=== PATIENT | female | born 2000 | race Two or more races ===

== ENCOUNTER 2024-01-21 02:46 | Observation (INO) | payer MEDICAID, OTHER ==
[~2024-01-21] VITALS: Ht 152.4 cm; Wt 68.0 kg
[2024-01-21] MEDS: TERBUTALINE SULFATE 1 MG/ML 1ML VIAL SC ONE ×2 (03:46→06:55)
[2024-01-21] MEDS: BETAMETHASONE ACET (30mg/5ml) 5ml Vial 6mg/ml IM ONE (03:59)
[2024-01-21 06:55] LABS: Basophils # (auto) 0 10 ^3/uL (0-0.2); Basophils % (auto) 0.3 % (0.0-2.0); Eosinophils # (auto) 0 10 ^3/uL (0-0.8); Eosinophils % (auto) 0.4 % (0.0-7.0); Hematocrit 37.1 % (36.0-46.0); Hemoglobin 12.5 g/dL (12.2-16.2); Lymphocytes % (auto) 11.5 % (10.0-50.0); Mean Corpuscular Hemoglobin 31.5 pg (28.0-32.0); Mean Corpuscular Hgb Conc. 33.7 g/dL (32.0-36.0); Mean Corpuscular Volume 93.5 fL (80.0-100.0); Monocytes # (auto) 0.3 10 ^3/uL (0-1.3); Monocytes % (auto) 3.2 % (0.0-12.0); Neutrophils # (auto) 7.5 10 ^3/uL (1.6-8.6); Neutrophils % (auto) 84.6 % (37.0-80.0); Nucleated Red Blood Cells % 0.1 %; Red Blood Cells 3.96 10^6/uL (4.0-5.20); Red Cell Distribution Width 13.3 % (11.8-14.3); White Blood Cell 8.9 10^3/uL (4.4-10.8)
[2024-01-21 07:02] LABS: Alanine Aminotransferase 14 U/L (7-40); Albumin 3.4 g/dL (3.2-4.8); Alkaline Phosphatase 189 U/L (46-116); Anion Gap 9 (5-15); Aspartate Aminotransferase 23 U/L (13-40); BUN/Creatinine Ratio 15.5 (10.0-20.0); Bilirubin, Total 0.3 mg/dL (0.2-1.0); Blood Urea Nitrogen 9 mg/dL (9-23); Calcium 8.8 mg/dL (8.5-10.1); Carbon Dioxide 20 mmol/L (20-30); Chloride 108 mmol/L (98-107); Glucose 97 mg/dL (74-106); Potassium 3.4 mmol/L (3.5-5.1); Sodium 137 mmol/L (136-145); Total Protein 5.9 g/dL (5.7-8.2)
[2024-01-21] MEDS ORDERED: NIF10C PO ×3 (07:03→07:35)
[2024-01-21] MEDS ORDERED: PREN-96 PO ×2 (07:35)
[2024-01-21] MEDS: NIFEdipine 10 MG CAP PO ONE (07:57)
[2024-01-22 06:06] LABS: RPR Non Reactive (Non Reactive)
[2024-01-22 07:06] LABS: Rubella Antibodies, IgG 1.39 index (Immune >0.99)
== END 2024-01-21 08:40 | disposition home or self-care (01) ==
LOC: LDRP 02:46
PROVIDERS: ADMIT Obstetrics & Gynecology; ATTEND Obstetrics & Gynecology
DX: O47.00 False labor before 37 completed weeks of gestation, unspecified trimester (principal); O26.893 Other specified pregnancy related conditions, third trimester; R10.30 Lower abdominal pain, unspecified; Z3A.34 34 weeks gestation of pregnancy; Z98.890 Other specified postprocedural states
CPT/HCPCS: 36415; 59025; 76805; 76817; 80053; 81002; 85025; 86592; 86703; 86762; 86850; 86900; 86901; 87081; 87340; 96372; G0378; J0702; J3105

== ENCOUNTER 2024-01-21 16:05 | Observation (INO) | payer MEDICAID ==
[~2024-01-21] VITALS: Ht 154.9 cm; Wt 68.0 kg
[~2024-01-21 16:05] MED LIST: NIF10C PO; PREN-96 PO
[2024-01-21] MEDS: BETAMETHASONE ACET (30mg/5ml) 5ml Vial 6mg/ml IM ONE (16:45)
== END 2024-01-21 16:53 | disposition home or self-care (01) ==
LOC: LDRP 16:05
PROVIDERS: ADMIT Obstetrics & Gynecology; ATTEND Obstetrics & Gynecology
DX: O62.9 Abnormality of forces of labor, unspecified (principal); Z79.899 Other long term (current) drug therapy; Z3A.34 34 weeks gestation of pregnancy
CPT/HCPCS: 96372; G0378